=== PATIENT | female | born 1985 | race Caucasian/White ===

== ENCOUNTER 2019-12-05 10:49 | Outpatient (CLI) | payer OTHER, SELFPAY ==
[2019-12-05 11:13] LABS: D Dimer <= 0.27 ug/mIFEU (0-0.59)
== END 2019-12-05 10:50 | disposition home or self-care (01) ==
PROVIDERS: Family Provider Family Medicine; Visit Provider Family Medicine
DX: R07.89 Other chest pain (principal)
CPT/HCPCS: 85378

== ENCOUNTER 2019-12-05 11:44 | Emergency (ER) | payer OTHER, SELFPAY ==
[2019-12-05 11:55] VITALS: BP 120/87; PULSE 91; RESP 18; TEMP 37; O2SAT 98; BMI 22.6
--- NOTE | 2019-12-05 12:18 | XRR_ITS ---
PROCEDURE INFORMATION: Exam: XR Chest, 1 View Exam date and time: 12/05/2019 12:35 PM Age: 34 years old Clinical indication: Other: Syncope; Chest pain; Type not specified TECHNIQUE: Imaging protocol: XR of the chest Views: 1 view. COMPARISON: No relevant prior studies available. FINDINGS: Lungs: Unremarkable. No consolidation. Pleural space: Unremarkable. No pleural effusion. No pneumothorax. Heart/Mediastinum: Unremarkable. No cardiomegaly. Bones/joints: Unremarkable. XR/XR chest 1V portable [id number] IMPRESSION: No acute findings.
--- NOTE | 2019-12-05 12:18 | ECG_ITS ---
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 Measurements Intervals [place] Rate: 85 P: 60 [place]: 165 QRS: 58 QRSD: 77 T: 11 QT: 343 QTc: 410 Interpretive Statements SINUS RHYTHM SEPTAL MYOCARDIAL INFARCTION , PROBABLY OLD [40+ ms Q WAVE IN V1/V2] No previous ECG available for comparison Electronically Signed On 12-05-2019 16:26:21 CDT by Nicolasa Griffith M.D. [id number] salazar
[2019-12-05 12:21] VITALS: BP 124/87; PULSE 98; RESP 26; O2SAT 100
[2019-12-05 12:46] LABS: Basophils # 0.1 10^3/uL (0.0-0.1); Basophils % 0.5 %; Eosinophils # 0.3 10^3/uL (0.0-0.8); Eosinophils % 2.5 %; Hematocrit 42.1 % (37.0-47.0); Hemoglobin 13.5 g/dL (11.5-15.3); Lymphocytes # 2.1 10^3/uL (0.8-4.8); Mean Corpuscular HGB Conc 32.1 g/dL (30.0-36.0); Mean Corpuscular Hemoglobin 29.3 pg (28.0-34.0); Mean Corpuscular Volume 91.5 fL (81-99); Mean Platelet Volume 10.5 fL (7.4-10.4); Monocytes # 0.6 10^3/uL (0.2-0.9); Monocytes % 6.2 %; Neutrophils # 6.88 10^3/uL (1.8-7.7); Neutrophils % 69.6 %; Nucleated Red Blood Cells % 0 %; Platelet Count 302 10^3/cmm (130-400); Red Cell Distribution Width 12.8 % (12.1-15.1); White Blood Count 9.9 10^3/uL (4.0-10.0)
[2019-12-05 12:56] VITALS: BP 124/87; O2SAT 98
[2019-12-05 13:03] LABS: Lactate (Lactic Acid level) 0.8 mmol/L (0.5-2.2)
[2019-12-05 13:05] LABS: D Dimer <= 0.27 ug/mIFEU (0-0.59)
[2019-12-05 13:06] LABS: Troponin(5th) Baseline 6 ng/L (0-10)
[2019-12-05 13:08] LABS: Alanine Aminotransferase 14 U/L (0-33); Albumin Level 4.6 g/dL (3.5-5.2); Alkaline Phosphatase 53 IU/L (35-105); Anion Gap 15.7 (5-19); Aspartate Amino Transferase 20 U/L (0-32); Blood Urea Nitrogen 10 mg/dL (6-20); Calcium 9.3 mg/dL (8.5-10.5); Carbon Dioxide 26 mmol/L (22-29); Chloride 101 mmol/L (98-107); Globulin 2.8 g/dL (1.3-4.6); Glomerular Filtration Rate 113.1 mL/min (90-130); Glucose 103 mg/dL (65-115); Osmolality Calculated 287 mOsm/kg (285-295); Potassium 3.7 mmol/L (3.5-5.1); Sodium 139 mmol/L (136-145); Total Bilirubin 0.2 mg/dL (0.15-1.2); Total Protein 7.4 g/dL (6.6-8.7)
--- NOTE | 2019-12-05 13:08 | ED_ITS ---
HPI - Chest Pain General: Chief Complaint: Chest Pain Stated Complaint: Chest Pain/High Heart Rate/Loss of smell & taste Time Seen by Provider: 12/05/19 12:08 History of Present Illness: HPI narrative: 34-year-old female patient presents to the emergency department from her primary care's office for work-up. Tested positive for Covid on 11/10/2019. Reports return to work on 11/20/2019. Experienced an episode of tachycardia on 11/24/2019. Reports did not last but a few seconds. States continues to experience chest pain, cough and occasional heart fluttering. She was seen today for follow-up and urged to come to the ER due to concern of myocarditis. She reports is here for a CAT scan of her chest. She reports her primary care provider has ordered a Holter monitor. MD complaint: chest pain Onset (ago): day(s) (11) Timing of current episode: episodic Prior episodes: No Onset: during exertion Pain location: epigastric Pain radiation: none Severity: mild Quality: tightness and heaviness Relieving factors: rest Exacerbating factors: exertion and other (Cough) Context: recent illness (COVID-19) Associated symptoms: Reports palpitations and other (Cough, worse in the afternoon); Deny abdominal pain, diaphoresis, dyspnea, fever(s), nausea, syncope or vomiting Treatment prior to arrival: none Review of Systems General: Reports: 10 or more systems reviewed and unremarkable except in HPI and below Const: Denies: fever(s), chills or diaphoresis Eyes: Denies: blurry vision or eye redness ENMT: Denies: throat pain, dental pain or disequilibrium Card: Reports: chest pain and palpitations; Denies: irregular heart rhythm, edema, swelling of feet/ankles, syncope, dyspnea on exertion or orthopnea Resp: Reports: non-productive cough; Denies: dyspnea, productive cough, wheezing, pain on inspiration or chest congestion GI: Denies: abdominal pain, nausea or vomiting : Denies: difficulty voiding or dysuria Musc: Denies: back pain Skin/Breast: Denies: rash or pruritus Neuro: Denies: headache(s), weakness in extremities or behavioral changes Psych: Denies: anxiety or depression Warren/Lymph: Denies: easy bruising Physical Exam Const: COMMON NORMALS: no acute distress, patient oriented x3, healthy appearing and alert GENERAL APPEARANCE: cooperative, comfortable and well hydrated HENMT: COMMON NORMALS: normocephalic, Normal external nose present and moist oral mucous membranes HEAD & SCALP: normocephalic NOSE: Normal external nose present Eye: COMMON NORMALS: Equal, round and reactive pupils present and EOMs intact bilaterally GENERAL EYE: appearance normal, both eyes and all related structures PUPIL: Yes Equal, round and reactive pupils present Neck/C-Spine: COMMON NORMALS: full ROM and no lymphadenopathy GENERAL: Yes normal visual inspection and Yes trachea midline CERVICAL SPINE: Yes cervical ROM normal Lymph: LYMPHATIC: no lymphadenopathy noted Chest: COMMONS NORMALS: normal inspection of the chest Resp: COMMON NORMALS: normal respiratory effort and clear to auscultation bilaterally AUSCULTATION: clear to auscultation bilaterally Cardio: COMMON NORMALS: regular rhythm, S1 normal heart sound present, S2 normal heart sound present and Peripheral pulses 2+ throughout RHYTHM: regular rhythm HEART SOUNDS: S1 normal heart sound present and S2 normal heart sound present PERIPHERAL PULSES: Peripheral pulses 2+ throughout GI: COMMON NORMALS: Soft to palpation and non-tender INSPECTION: Yes normal to inspection PALPATION: Yes Soft to palpation : COMMON NORMALS: Yes no CVA tenderness BLADDER/KIDNEY EXAM: Yes no CVA tenderness Back/Pelvis: COMMON NORMALS: no CVA tenderness and thoracic and lumbar spine normal to inspection Extremity: COMMON NORMALS: normal to inspection and capillary refill normal Neuro: COMMON NORMALS: patient oriented x3 and no focal motor deficits SENSORIUM/ORIENTATION: Yes alert Psych: COMMON NORMALS: mental status grossly normal, Normal thought process present and cooperative ACTIVITY/MOTOR BEHAVIOR: Yes appropriate eye contact THOUGHT PROCESS: Normal thought process present Skin: COMMON NORMALS: no rashes or lesions noted and turgor normal GENERAL SKIN EXAM: no rashes or lesions noted and turgor normal Course ED course: 34-year-old female patient presents to the emergency department due to tachycardic episode, continued palpitations and concern for myocarditis. D- dimer found to be less than 0.27, troponin 6 which is normal, lactate normal, chest x-ray normal without acute disease, case discussed with Dr. Remy, due to negative D-dimer elevation, CT of the chest not indicated, discussed with patient echocardiogram, she wishes to proceed while she is here, TSH added. 34-year-old female patient presents to the emergency department due to concern of cardiac abnormality following COVID-19 infection. Troponin negative for elevation, white blood count normal, chemistry unremarkable, lactate normal, TSH normal, EKGs were normal, D-dimer less than 0.27, CT of the chest not indicated, she was not tachycardic and O2 saturation 99% on room air. Wells criteria for PE 0. Echocardiogram read by Dr. Martinez with no acute findings. She is recommended to follow-up with her primary care provider and continue with Holter monitor recommendation. She denied chest pain or episodes of palpitations here in the ED. She reports symptoms occur with exertion/activity. She agrees to return to the emergency department if she develops concerning symptoms such as chest pain, continued episodes of palpitations or other concerning symptoms. Consultations: Consultation #1: Dr Martinez -called with results of echocardiogram, no acute findings, normal echocardiogram. Time: 17:02 Vital Signs: Vital signs: Vital Signs Temperature 98.6 F 12/05/19 11:55 Pulse Rate 82 12/05/19 17:33 Respiratory Rate 12 12/05/19 17:33 Blood Pressure 113/76 12/05/19 17:33 Pulse Oximetry 99 12/05/19 17:33 MDM - Chest Pain Lab Data: Labs: Lab Results 12/05/19 12/05/19 12/05/19 Range/Units 12:24 12:25 12:25 WBC 9.9 (4.0-10.0) 10^3/ uL RBC 4.60 (4.1-5.3) 10^6/u L Hgb 13.5 (11.5-15.3) g/dL Hct 42.1 (37.0-47.0) % MCV 91.5 (81-99) fL MCH 29.3 (28.0-34.0) pg MCHC 32.1 (30.0-36.0) g/dL RDW 12.8 (12.1-15.1) % Plt Count 302 (130-400) 10^3/c mm MPV 10.5 H (7.4-10.4) fL Neut % (Auto) 69.6 % Lymph % (Auto) 21.0 % [place] % (Auto) 6.2 % Eos % (Auto) 2.5 % Baso % (Auto) 0.5 % Neut # (Auto) 6.88 (1.8-7.7) 10^3/u L Lymph # (Auto) 2.1 (0.8-4.8) 10^3/u L [place] # (Auto) 0.6 (0.2-0.9) 10^3/u L Eos # (Auto) 0.3 (0.0-0.8) 10^3/u L Baso # (Auto) 0.1 (0.0-0.1) 10^3/u L Nucleated RBC % (a uto) 0 % Nucleated RBCs # 0.0 /100WBC D-Dimer <= 0.27 (0-0.59) ug/mIFE U Sodium (136-145) mmol/L Potassium (3.5-5.1) mmol/L Chloride (98-107) mmol/L Carbon Dioxide (22-29) mmol/L Anion Gap (5-19) BUN (6-20) mg/dL Creatinine (0.5-0.9) mg/dL GFR Calculation (90-130) mL/min Glucose (65-115) mg/dL Calculated Osmolal ity (285-295) mOsm/k g Lactate (0.5-2.2) mmol/L Calcium (8.5-10.5) mg/dL Total Bilirubin (0.15-1.2) mg/dL AST (0-32) U/L ALT (0-33) U/L Alkaline Phosphata se (35-105) IU/L Troponin T Baselin e (0-10) ng/L Troponin T 120 Min [place] (0-10) ng/L Delta Troponin T (0-10) ABS# Total Protein (6.6-8.7) g/dL Albumin (3.5-5.2) g/dL Globulin (1.3-4.6) g/dL TSH 2.19 (0.27-4.20) uIU/ mL 12/05/19 12/05/19 12/05/19 Range/Units 12:25 12:25 12:25 WBC (4.0-10.0) 10^3/ uL RBC (4.1-5.3) 10^6/u L Hgb (11.5-15.3) g/dL Hct (37.0-47.0) % MCV (81-99) fL MCH (28.0-34.0) pg MCHC (30.0-36.0) g/dL RDW (12.1-15.1) % Plt Count (130-400) 10^3/c mm MPV (7.4-10.4) fL Neut % (Auto) % Lymph % (Auto) % [place] % (Auto) % Eos % (Auto) % Baso % (Auto) % Neut # (Auto) (1.8-7.7) 10^3/u L Lymph # (Auto) (0.8-4.8) 10^3/u L [place] # (Auto) (0.2-0.9) 10^3/u L Eos # (Auto) (0.0-0.8) 10^3/u L Baso # (Auto) (0.0-0.1) 10^3/u L Nucleated RBC % (a uto) % Nucleated RBCs # /100WBC D-Dimer (0-0.59) ug/mIFE U Sodium 139 (136-145) mmol/L Potassium 3.7 (3.5-5.1) mmol/L Chloride 101 (98-107) mmol/L Carbon Dioxide 26 (22-29) mmol/L Anion Gap 15.7 (5-19) BUN 10 (6-20) mg/dL Creatinine 0.6 (0.5-0.9) mg/dL GFR Calculation 113.1 (90-130) mL/min Glucose 103 (65-115) mg/dL Calculated Osmolal ity 287 (285-295) mOsm/k g Lactate 0.8 (0.5-2.2) mmol/L Calcium 9.3 (8.5-10.5) mg/dL Total Bilirubin 0.2 (0.15-1.2) mg/dL AST 20 (0-32) U/L ALT 14 (0-33) U/L Alkaline Phosphata se 53 (35-105) IU/L Troponin T Baselin e 6 (0-10) ng/L Troponin T 120 Min [place] (0-10) ng/L Delta Troponin T (0-10) ABS# Total Protein 7.4 (6.6-8.7) g/dL Albumin 4.6 (3.5-5.2) g/dL Globulin 2.8 (1.3-4.6) g/dL TSH (0.27-4.20) uIU/ mL 12/05/19 Range/Units 14:30 WBC (4.0-10.0) 10^3/ uL RBC (4.1-5.3) 10^6/u L Hgb (11.5-15.3) g/dL Hct (37.0-47.0) % MCV (81-99) fL MCH (28.0-34.0) pg MCHC (30.0-36.0) g/dL RDW (12.1-15.1) % Plt Count (130-400) 10^3/c mm MPV (7.4-10.4) fL Neut % (Auto) % Lymph % (Auto) % [place] % (Auto) % Eos % (Auto) % Baso % (Auto) % Neut # (Auto) (1.8-7.7) 10^3/u L Lymph # (Auto) (0.8-4.8) 10^3/u L [place] # (Auto) (0.2-0.9) 10^3/u L Eos # (Auto) (0.0-0.8) 10^3/u L Baso # (Auto) (0.0-0.1) 10^3/u L Nucleated RBC % (a uto) % Nucleated RBCs # /100WBC D-Dimer (0-0.59) ug/mIFE U Sodium (136-145) mmol/L Potassium (3.5-5.1) mmol/L Chloride (98-107) mmol/L Carbon Dioxide (22-29) mmol/L Anion Gap (5-19) BUN (6-20) mg/dL Creatinine (0.5-0.9) mg/dL GFR Calculation (90-130) mL/min Glucose (65-115) mg/dL Calculated Osmolal ity (285-295) mOsm/k g Lactate (0.5-2.2) mmol/L Calcium (8.5-10.5) mg/dL Total Bilirubin (0.15-1.2) mg/dL AST (0-32) U/L ALT (0-33) U/L Alkaline Phosphata se (35-105) IU/L Troponin T Baselin e (0-10) ng/L Troponin T 120 Min [place] 6.00 (0-10) ng/L Delta Troponin T 0 (0-10) ABS# Total Protein (6.6-8.7) g/dL Albumin (3.5-5.2) g/dL Globulin (1.3-4.6) g/dL TSH (0.27-4.20) uIU/ mL Imaging Data^: CXR: Radiologist's impression: [address] [place] [address] XRay Report Signed Patient: Karoline Ngo Unit #: [id number] : 1985 Age/Sex: 34 / F ADM Date: 12/05/19 Loc: ER Room/Bed: Attending Dr: Ordering Provider/Ordering MD: Christa Noguera Date of Service: 12/05/19 Procedure(s): XR chest 1V portable [id number] Accession Number(s): [id number] Report Number: [id number] PROCEDURE INFORMATION: Exam: XR Chest, 1 View Exam date and time: 12/05/2019 12:35 PM Age: 34 years old Clinical indication: Other: Syncope; Chest pain; Type not specified TECHNIQUE: Imaging protocol: XR of the chest Views: 1 view. COMPARISON: No relevant prior studies available. FINDINGS: Lungs: Unremarkable. No consolidation. Pleural space: Unremarkable. No pleural effusion. No pneumothorax. Heart/Mediastinum: Unremarkable. No cardiomegaly. Bones/joints: Unremarkable. XR/XR chest 1V portable [id number] IMPRESSION: No acute findings. Dictated By: Everardo White Signed By: Everardo White Signed Date/Time: 11/16 1301 DD/ 1300 EKG Data^: EKG 1: EKG interpretation date: 12/05/19 EKG interpretation time: 12:14 Computer generated interpretation: Sinus rhythm, septal myocardial infarction, probably old, abnormal ECG, unconfirmed report EKG 2: EKG interpretation date: 12/05/19 EKG interpretation time: 15:15 Prior EKG tracings: available for review Other EKG comments: Sinus rhythm, septal myocardial infarction, probably old, abnormal ECG Discharge Plan Discharge Patient Disposition: Home Clinical Impression: COVID-19, Heart palpitations Chest pain Qualifiers: Chest pain type: unspecified Qualified Code(s): R07.9 - Chest pain, unspecified Condition: Stable Discharge Orders: Discharge Order (Routine); Ordered 12/05/19 Ordered By: Christa Noguera Discharge Diet: Usual diet Discharge Activity: Resume usual activity Patient Instructions: Chest Pain (ED), Palpitations (ED) Activity Restrictions/Additional Instructions: Continue with heart monitor recommendation by your primary care provider Follow-up with your primary care provider in 3 to 4 day Return to the emergency department if you develop chest pain, shortness of breath, inability to catch your breath, or other concerning symptoms Take it easy, rest frequently, activity as tolerated Stand Alone Forms: Work/School Release Discharge Date/Time: 12/05/19 17:58 Coding Level of Care Code ED 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
--- NOTE | 2019-12-05 13:27 | USCV_ITS ---
Karoline Ngo Age: 34 Gender: F : 1985 Exam Date: 12/05/2019 13:55 Ordering Phys: Christa Noguera Technologist: Ghanshyam Alfaro Exam Location: [facility] [place] Indication: CHEST PAIN/ TACHYCARDIA BP: 117 / HR: 148 Rhythm: Sinus Technical Quality: Adequate MEASUREMENTS (Male / Female) Normal Values 2D ECHO LV Diastolic Diameter PLAX 4.4 cm 4.2 - 5.9 / 3.9 - 5.3 cm LV Systolic Diameter PLAX 3.1 cm IVS Diastolic Thickness 1.1 cm 0.6 - 1.0 / 0.6 - 0.9 cm IVS Systolic Thickness 1.2 cm LVPW Diastolic Thickness 1.2 cm 0.6 - 1.0 / 0.6 - 0.9 cm LVPW Systolic Thickness 1.2 cm LVOT Diameter 2.0 cm LV Ejection Fraction 2D Teich 47.5 % LV Ejection Fraction MOD 2C 73.1 % LV Ejection Fraction 2C AL 73.4 % LA Diameter 3.4 cm LA Width 3.0 cm LA Height 3.5 cm RA Width 2.7 cm RA Height 3.7 cm M-MODE LV Diastolic Diameter MM 4.6 cm 4.2 - 5.9 / 3.9 - 5.3 cm LV Systolic Diameter MM 3.2 cm LV Ejection Fraction MM Teich 58.3 % IVS Diastolic Thickness MM 0.9 cm 0.6 - 1.0 / 0.6 - 0.9 cm IVS Systolic Thickness MM 1.1 cm LVPW Diastolic Thickness MM 1.3 cm 0.6 - 1.0 / 0.6 - 0.9 cm LVPW Systolic Thickness MM 1.6 cm RV Diastolic Diameter MM 1.3 cm Aortic Annulus Diameter 3.2 cm LA Ao Ratio MM 1.1 MV E Point Septal Separation 1.1 cm DOPPLER AV Peak Velocity 98.0 cm/s LVOT Peak Velocity 91.0 cm/s AV Area Cont Eq vti 3.3 cm squared AV Area Cont Eq pk 3.0 cm squared MV Area PHT 5.0 cm squared Mitral E to A Ratio 1.2 MV E' Velocity 43.5 cm/s Mitral E to MV E' Ratio 4.5 Mitral E to LV E' Lateral Ratio 3.6 Mitral E to LV E' Septal Ratio 6.1 TR Peak Velocity 134.3 cm/s TR Peak Gradient 7.2 mmHg TV Peak E Velocity 91.0 cm/s Right Atrial Pressure 3.0 mmHg Pulmonary Artery Systolic Pressu 10.2 mmHg PV Peak Velocity 101.0 cm/s FINDINGS Left Ventricle Normal left ventricular size and systolic function, EF 73 %. No regional wall motion abnormalities. Right Ventricle Normal right ventricular size and systolic function. Right Atrium Normal right atrial size. Left Atrium Normal left atrial size. Mitral Valve Thickened mitral valve. Trace mitral valve regurgitation. Aortic Valve No gross abnormalities noted Tricuspid Valve No gross abnormalities noted Pulmonic Valve Pulmonic valve not well visualized. Pericardium No pericardial effusion. Aorta Normal aortic annulus size. CONCLUSIONS Normal left ventricular size and systolic function, EF 73 %. No regional wall motion abnormalities. Thickened mitral valve. Trace mitral valve regurgitation. No significant stenotic or regurgitant lesions. Normal cardiac chamber sizes. No intracardiac masses. There is no pericardial effusion. No previous study is available for comparison. Dr Rex Martinez MD FACC (Electronically Signed) Final Date: 05 December 2019 17:08 S
[2019-12-05 13:46] VITALS: BP 113/79; PULSE 86; RESP 14; O2SAT 97
--- NOTE | 2019-12-05 14:18 | ECG_ITS ---
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 Measurements Intervals [place] Rate: 84 P: 54 [place]: 172 QRS: 64 QRSD: 80 T: 39 QT: 374 QTc: 443 Interpretive Statements SINUS RHYTHM SEPTAL MYOCARDIAL INFARCTION , PROBABLY OLD [40+ ms Q WAVE IN V1/V2] Compared to ECG 12/05/2019 12:11:07 No significant changes Electronically Signed On 12-05-2019 16:32:52 CDT by Nicolasa Griffith M.D. [id number]
[2019-12-05 14:29] LABS: Thyroid Stimulating Hormone 2.19 uIU/mL (0.27-4.20)
[2019-12-05 15:47] LABS: Troponin 5 2HR Delta 0 ABS# (0-10)
[2019-12-05 16:53] VITALS: BP 115/84; PULSE 96; RESP 21; O2SAT 97
[2019-12-05 17:33] VITALS: BP 113/76; PULSE 82; RESP 12; O2SAT 99
== END 2019-12-05 17:58 | disposition home or self-care (01) ==
PROVIDERS: Emergency Provider Nurse Practitioner Family
DX: U07.1 COVID-19 (principal); R00.2 Palpitations; R07.9 Chest pain, unspecified
CPT/HCPCS: 12345; 71045; 80053; 83605; 84443; 84484; 85025; 85378; 93005; 93306; 99282; 99283

== ENCOUNTER 2019-12-25 11:49 | Outpatient (CLI) | payer OTHER, SELFPAY ==
[2019-12-25 12:20] LABS: Basophils # 0.1 10^3/uL (0.0-0.1); Basophils % 0.6 %; Eosinophils # 0.2 10^3/uL (0.0-0.8); Eosinophils % 1.4 %; Hematocrit 38.8 % (37.0-47.0); Hemoglobin 12.4 g/dL (11.5-15.3); Lymphocytes % 42.1 %; Mean Corpuscular Hemoglobin 29.6 pg (28.0-34.0); Mean Corpuscular Volume 92.6 fL (81-99); Mean Platelet Volume 9.6 fL (7.4-10.4); Monocytes # 0.8 10^3/uL (0.2-0.9); Monocytes % 6.6 %; Neutrophils # 5.82 10^3/uL (1.8-7.7); Neutrophils % 48.9 %; Nucleated Red Blood Cells % 0 %; Platelet Count 296 10^3/cmm (130-400); Red Blood Count 4.19 10^6/uL (4.1-5.3); Red Cell Distribution Width 12.5 % (12.1-15.1); White Blood Count 11.9 10^3/uL (4.0-10.0)
[2019-12-25 12:47] LABS: Anion Gap 11.1 (5-19); Blood Urea Nitrogen 12 mg/dL (6-20); Calcium 9.2 mg/dL (8.5-10.5); Carbon Dioxide 30 mmol/L (22-29); Chloride 100 mmol/L (98-107); Glomerular Filtration Rate 81.2 mL/min (90-130); Glucose 96 mg/dL (65-115); Osmolality Calculated 286 mOsm/kg (285-295); Potassium 3.1 mmol/L (3.5-5.1); Sodium 138 mmol/L (136-145)
[2019-12-26 16:27] LABS: Immunoglobulin E 100 kU/L (<OR=114)
[2019-12-26 17:24] LABS: Alternaria Alternata (M6) Ige <0.10 kU/L; Alternaria Class 0; Cat Dander (E1) Ige <0.10 kU/L; Cat Dander Class 0; Common Ragweed (Short) (W1) Ig <0.10 kU/L; D. Farinae Class 0; Dermatophagoides Class 0/1; Dermatophagoides Farinae (D2) <0.10 kU/L; Dermatophagoides Pteronyssinus 0.24 kU/L; Dog Dander (E5) Ige <0.10 kU/L; Dog Dander Class 0; Elm (T8) Ige <0.10 kU/L; Elm Class 0; English Plantain (W9) Ige <0.10 kU/L; English Plantain Class 0; House Dust (Greer) (H1) Ige <0.10 kU/L; House Dust (Hollister- Stier) <0.10 kU/L; House Dust Class 0; Immunoglobulin E 106 kU/L (<OR=114); Lamb'S Quarters (Goose Foot) <0.10 kU/L; Lamb'S Quarters Class 0; Maple (Box Elder) (T1) Ige <0.10 kU/L; Maple Class 0; Mucor Racemosus Class 0; Oak (T7) Ige <0.10 kU/L; Oak Class 0; Penicillium Class 0/1; Penicillium Notatum (M1) Ige 0.14 kU/L; Ragweeed Class 0; Rough Marsh Elder (W16) Ige <0.10 kU/L; Rough Marsh Elder Class 0
[2019-12-27 16:57] LABS: Bermuda Class 0; Bermuda Grass (G2) Ige <0.10 kU/L; Johnson Grass (G10) Ige <0.10 kU/L; Johnson Grass Cl 0; June Grass Class 0; June Grass(Kentucky Blue) (G8) <0.10 kU/L; Meadow Fescue (G4) Ige <0.10 kU/L; Meadow Fescue Class 0; Orchard Grass (Cocksfoot) (G3) <0.10 kU/L; Perennial Rye Grass (G5) Ige <0.10 kU/L; Perennial Rye Grass Class 0; Sweet Vernal Class 0/1; Sweet Vernal Grass (G1) Ige 0.19 kU/L; Timothy Grass (G6) Ige <0.10 kU/L; Timothy Grass Class 0
[2020-01-02 18:38] LABS: Aspergillus Fumigatus, Igg Ab, 13.7 mg/L (<=102)
== END 2019-12-25 11:50 | disposition home or self-care (01) ==
LOC: LAB 11:52
PROVIDERS: PCP Nurse Practitioner Family; Visit Provider Internal Medicine Pulmonary Disease
DX: R05 Cough (principal)
CPT/HCPCS: 36415; 80048; 82785; 85025; 86003

== ENCOUNTER 2020-01-08 09:54 | Outpatient (CLI) | payer OTHER, SELFPAY ==
--- NOTE | 2020-01-08 10:00 | CT_ITS ---
WS: [id number] CTA OF THE CHEST WITH PULMONARY EMBOLISM PROTOCOL TECHNIQUE: High-resolution contrast enhanced CTA of the chest with coronal and sagittal reformatted i mages with pulmonary embolism protocol. MIP images are also reviewed. CLINICAL INFORMATION: Pleuritic Chest Pain COMPARISON: None. DLP: 748.[address] scans at [facility] use at least one of these dose optimization techniques: automat ed exposure control; mA and/or kV adjustment per patient size (includes targeted exams where dose is matched to clinical indication); or iterative reconstruction. FINDINGS: Proximal main pulmonary arteries are normal. Segmental and subsegmental pulmonary arteries are patent . No evidence of pulmonary embolus. Normal caliber thoracic aorta. No mediastinal or hilar lymphadeno tristin. No axillary lymphadenopathy. Noncalcified hazy opacity in the right middle lobe along the fissure measuring 5 mm. No other suspici ous pulmonary parenchymal abnormalities. No focal pneumonia. No pleural fluid. Adrenal glands are normal. CT/CT angio chest PE protcl [id number] IMPRESSION: 1. No evidence for pulmonary embolus. 2. Normal caliber thoracic aorta. 3. No mediastinal or hilar lymphadenopathy. 4. No acute pulmonary infiltrates. No focal pneumonia or pleural fluid. 5. Noncalcified hazy opacity in the right middle lobe measuring 5 mm. Recommen d 6 month follow-up.
[2020-01-08] MEDS: iohexol 350 mg/mL 100 mL Btl IV (10:26)
== END 2020-01-08 09:55 | disposition home or self-care (01) ==
LOC: RADWPI 10:01
PROVIDERS: PCP Nurse Practitioner Family; Visit Provider Internal Medicine Pulmonary Disease
DX: R07.81 Pleurodynia (principal); R07.9 Chest pain, unspecified
CPT/HCPCS: 71275; Q9967

== ENCOUNTER → 2020-01-18 16:20 | Outpatient (BNVA) | payer OTHER, SELFPAY | PROVIDERS: PCP Nurse Practitioner Family; Visit Provider Internal Medicine Pulmonary Disease | DX: R06.02 Shortness of breath (principal) | CPT/HCPCS: 87635 ==

== ENCOUNTER 2020-01-24 13:46 | Outpatient (CLI) | payer OTHER, SELFPAY ==
--- NOTE | 2020-01-24 08:22 | PFTS_ITS ---
Date of Study:01/24/20 Date of Dictation: MECHANICS: Forced vital capacity (FVC) is normal. Forced expiratory volume in one second (FEV1) is normal. FEV1/FVC is normal. FLOW VOLUME LOOP: Normal. LUNG VOLUMES: Not measured DIFFUSING CAPACITY FOR CARBON MONOXIDE: Not measured. INTERPRETATION: The pre and postbronchodilator spirometry are normal. MTDD
--- NOTE | 2020-01-24 08:24 | MECH_ITS ---
Date of Study:01/24/20 Date of Dictation: Methacholine challenge test INTERPRETATION: The methacholine challenge test is positive. The PC 20 is 60 mg/mL MTDD
--- NOTE | 2020-01-24 14:00 | PFTS_ITS ---
Date of Study:01/24/20 Date of Dictation: MECHANICS: Forced vital capacity (FVC) is normal. Forced expiratory volume in one second (FEV1) is normal. FEV1/FVC is normal. FLOW VOLUME LOOP: Normal. LUNG VOLUMES: Not measured. DIFFUSING CAPACITY FOR CARBON MONOXIDE: Normal. INTERPRETATION: The pre and postbronchodilator spirometry are normal. The gas exchange is normal. MTDD
--- NOTE | 2020-01-24 14:00 | MECH_ITS ---
Date of Study:01/24/20 Date of Dictation: MECHANICS: Forced vital capacity (FVC) is . Forced expiratory volume in one second (FEV1) is . FEV1/FVC is . FLOW VOLUME LOOP: . LUNG VOLUMES: Total lung capacity (TLC) is . Residual volume (RV) is . DIFFUSING CAPACITY FOR CARBON MONOXIDE: . INTERPRETATION: The pulmonary function tests are . mechanics and lung volumes. Gas exchange (DLCO) is . MTDD
== END 2020-01-24 13:47 | disposition home or self-care (01) ==
LOC: RT 13:55
PROVIDERS: PCP Nurse Practitioner Family; Visit Provider Internal Medicine Pulmonary Disease
DX: R07.81 Pleurodynia (principal); J30.2 Other seasonal allergic rhinitis
CPT/HCPCS: 94060; 94070; 94726; 94729; J7611

== ENCOUNTER 2020-03-04 20:00 | Outpatient (CLI) | payer OTHER, SELFPAY | END 2020-03-04 20:01 | disposition home or self-care (01) | LOC: SLEEP 03-05 09:20 | PROVIDERS: PCP Nurse Practitioner Family; Visit Provider Internal Medicine Pulmonary Disease | DX: R09.02 Hypoxemia (principal) | CPT/HCPCS: 95810 ==

== ENCOUNTER 2020-05-10 08:07 | Outpatient (CLI) | payer OTHER, SELFPAY ==
--- NOTE | 2020-05-10 08:10 | MM_ITS ---
WS: [id number] BILATERAL DIGITAL SCREENING MAMMOGRAPHY WITH CAD CLINICAL INFORMATION: SCREENING HISTORY: Screening mammogram. Left breast soreness COMPARISON: None. TECHNIQUE: Bilateral CC and MLO views. FINDINGS: Scattered fibroglandular densities bilaterally. No suspicious focal mass, asymmetry, calcifications, or architectural distortion. No evidence of malignancy. MM/[place] [id number] IMPRESSION: BI-RADS: 1-Negative FOLLOW UP: 1 Year Follow-up Recommend return to annual screening mammography.
== END 2020-05-10 08:08 | disposition home or self-care (01) ==
LOC: RADSHAW 08:09
PROVIDERS: PCP Nurse Practitioner Family; Visit Provider Physician Assistant
DX: Z12.31 Encounter for screening mammogram for malignant neoplasm of breast (principal)
CPT/HCPCS: 77067

== ENCOUNTER 2021-05-05 19:00 | Emergency (ER) | payer OTHER, SELFPAY ==
[2021-05-05 19:13] VITALS: BP 117/86; PULSE 74; RESP 18; TEMP 36.8; O2SAT 99; BMI 22.6
[2021-05-05 19:48] LABS: Basophils # 0.1 10^3/uL (0.0-0.1); Basophils % 0.7 %; Eosinophils # 0.3 10^3/uL (0.0-0.8); Eosinophils % 2.5 %; Hematocrit 42.6 % (37.0-47.0); Hemoglobin 14.2 g/dL (11.5-15.3); Lymphocytes # 3.2 10^3/uL (0.8-4.8); Lymphocytes % 29.3 %; Mean Corpuscular HGB Conc 33.3 g/dL (30.0-36.0); Mean Corpuscular Hemoglobin 29.8 pg (28.0-34.0); Mean Corpuscular Volume 89.5 fl (81-99); Mean Platelet Volume 10.4 fL (7.4-10.4); Monocytes # 0.8 10^3/uL (0.2-0.9); Monocytes % 7.2 %; Nucleated Red Blood Cells % 0 %; Platelet Count 296 10^3/cmm (130-400); Red Blood Count 4.76 10^6/uL (4.1-5.3)
[2021-05-05 20:14] LABS: Alanine Aminotransferase 9 U/L (0-33); Albumin Level 4.7 g/dL (3.5-5.2); Alkaline Phosphatase 51 IU/L (35-105); Anion Gap 16.6 (5-19); Aspartate Amino Transferase 17 U/L (0-32); Blood Urea Nitrogen 11 mg/dL (6-20); Calcium 9.6 mg/dL (8.5-10.5); Carbon Dioxide 25 mmol/L (22-29); Chloride 100 mmol/L (98-107); Creatinine Clr Calc Pharmacy 123.5857; Globulin 3.2 g/dL (1.3-4.6); Glomerular Filtration Rate 112.5 mL/min (90-130); Glucose 89 mg/dL (65-115); Lipase 43 U/L (13-60); Osmolality Calculated 285 mOsm/kg (285-295); Potassium 3.6 mmol/L (3.5-5.1); Sodium 138 mmol/L (136-145); Total Bilirubin 0.3 mg/dL (0.15-1.2); Total Protein 7.9 g/dL (6.6-8.7)
--- NOTE | 2021-05-05 20:19 | CTR_ITS ---
PROCEDURE INFORMATION: Exam: CT Abdomen And Pelvis With Contrast Exam date and time: 05/05/2021 8:48 PM Age: 35 years old Clinical indication: Abdominal pain; Prior surgery; Surgery date: 6+ months; Surgery type: Tubal, hernia repair; Patient HX: Llq pain and tenderness x2 days; Additional info: Llq abdominal pain and tenderness. TECHNIQUE: Imaging protocol: Computed tomography of the abdomen and pelvis with contrast. Radiation optimization: All CT scans at this facility use at least one of these dose optimization techniques: automated exposure control; mA and/or kV adjustment per patient size (includes targeted exams where dose is matched to clinical indication); or iterative reconstruction. Contrast material: OMNI 300; Contrast volume: 95 ml; Contrast route: INTRAVENOUS (IV); COMPARISON: CT abdomen pelvis w con* [id number] 01/07/2016 7:46 PM RADIATION DOSE METRICS: Total DLP (mGy-cm): 966.11 FINDINGS: Lungs: Stable 3 mm left lower lobe perifissural nodule, most likely an intrapulmonary node. No follow-up is recommended. Liver: Normal. No mass. Gallbladder and bile ducts: Normal. No calcified stones. No ductal dilation. Pancreas: Normal. No ductal dilation. Spleen: Normal. No splenomegaly. Adrenal glands: Normal. No mass. Kidneys and ureters: Normal. No hydronephrosis. Stomach and bowel: Unremarkable. No obstruction. No mucosal thickening. Appendix: The appendix is visualized and is normal. Intraperitoneal space: Unremarkable. No free air. No significant fluid collection. Vasculature: Unremarkable. No abdominal aortic aneurysm. Lymph nodes: Unremarkable. No enlarged lymph nodes. Urinary bladder: Unremarkable as visualized. Reproductive: 3.2 cm right ovarian cyst, Hounsfield units 27. The uterus and left ovary are unremarkable. Bones/joints: Chronic left L5 pars fracture. No acute fracture. Soft tissues: Unremarkable. CT/CT abdomen pelvis w con* [id number] IMPRESSION: 1. No acute abnormality identified in the abdomen or pelvis. 2. 3.2 cm right ovarian cyst which is likely slightly complicated by hemorrhage. No further imaging is recommended. (Reference: Jerod) References: Jerod et al. Management of Incidental Adnexal Findings on CT and MRI: A White Paper of the ACR Incidental Findings Committee, J Am Franco Radiol. 2020 Mar;17(2):248-254.
--- NOTE | 2021-05-05 20:20 | ED_ITS ---
HPI - Abdominal Pain General: Chief Complaint: Abdominal Pain Stated Complaint: ABD Pain-sent from DR Connor Seen by Provider: 05/05/21 19:57 History of Present Illness: Patient is a 35-year-old female comes to the ED with abdominal pain. Symptoms started approximately 3 days ago. Abdominal pain is located in the left lower quadrant of the abdomen. Pain worsens after she eats or drinks something. The pain was more episodic the first 2 days, but today it has been more constant. Pain at its worst today was rated an 8 out of 10, but currently pain is 6 out of 10. She has had decreased appetite today with some nausea but no episodes of emesis. She has not taken anything for pain today. Denies any fever, chills, change in bowel movements, blood in stool, dysuria or hematuria. Associated Symptoms: Reports nausea; Denies chills, constipation, diarrhea, dysuria, fever(s), hematochezia, hematuria and vomiting Review of Systems Const: Reports: change in appetite (decreased); Denies: fever(s), chills or fatigue Eyes: Denies: change in vision or eye discomfort ENMT: Denies: throat pain, odynophagia, nasal discharge or nasal congestion Card: Denies: chest pain, palpitations, edema, swelling of feet/ankles, dyspnea on exertion or orthopnea Resp: Denies: dyspnea, productive cough or non-productive cough GI: Reports: abdominal pain and nausea; Denies: vomiting, diarrhea, constipation or hematochezia : Denies: flank pain, dysuria or hematuria Musc: Denies: neck pain, back pain or extremity swelling Skin/Breast: Denies: rash or new lesions Neuro: Denies: headache(s), numbness in extremities or weakness in extremities PFS ED PFSH: Medical History Tachycardia Surgical History H/O tubal ligation Family History Father Cancer colon Social History Smoking and tobacco status: never smoked Second hand smoke exposure: No Smoking risk assessment/counseling performed?: No Alcohol intake: current Alcohol intake frequency: holidays/special occasions only Desire information about alcohol rehabilitation?: No Counseling given: No Lives independently: Yes Household members: spouse Housing: House Marital status: Current occupational status: employed Pets and animals: Yes History of recent travel: No Current gender identity: Female Physical Exam Const: COMMON NORMALS: no acute distress, patient oriented x3, healthy appe aring and alert GENERAL APPEARANCE: cooperative and comfortable HENMT: COMMON NORMALS: normocephalic HEAD & SCALP: normocephalic MOUTH: Normal oral and palatal mucosa present THROAT: posterior oropharynx normal and uvula midline Neck/C-Spine: COMMON NORMALS: supple GENERAL: Yes normal visual inspection Resp: COMMON NORMALS: normal respiratory effort, No retractions, No use of accessory muscles and clear to auscultation bilaterally AUSCULTATION: clear to auscultation bilaterally Cardio: COMMON NORMALS: regular rate, regular rhythm, S1 normal heart sound present, S2 normal heart sound present, No gallops present (Cardio), No clicks present (Cardio), No murmurs present (Cardio) and Peripheral pulses 2+ throughout RATE: regular rate RHYTHM: regular rhythm HEART SOUNDS: S1 normal heart sound present and S2 normal heart sound present PERIPHERAL PULSES: Peripheral pulses 2+ throughout GI: COMMON NORMALS: Normal to inspection, nondistended, normoactive bowel sounds present, Soft to palpation and no masses PALPATION: Yes Soft to palpation and Yes Tenderness to palpation present (GI) Details: LLQ and RLQ : COMMON NORMALS: Yes no CVA tenderness BLADDER/KIDNEY EXAM: Yes no CVA tenderness Back/Pelvis: COMMON NORMALS: no CVA tenderness Extremity: COMMON NORMALS: normal to inspection Neuro: COMMON NORMALS: patient oriented x3 SENSORIUM/ORIENTATION: Yes alert GAIT: Yes Normal gait present Skin: GENERAL SKIN EXAM: dry skin Course Vital Signs: Vital signs: Vital Signs Temperature 98.2 F 05/05/21 19:13 Pulse Rate 67 05/05/21 22:18 Respiratory Rate 16 05/05/21 22:18 Blood Pressure 111/80 05/05/21 22:18 Pulse Oximetry 97 05/05/21 22:18 MDM - Abdominal Pain Medical Decision Making Patient is a 35-year-old female comes to the ED with abdominal pain. Pain is located in left lower quadrant and right lower quadrant. Denies any fever, emesis, change in bowel movements or any urinary symptoms. Vitals are stable. Patient appears healthy and in no acute distress. She has some left lower quadrant abdominal tenderness and right lower quadrant abdominal tenderness. Rest of exam was benign. All labs were unremarkable. hCG negative. CT of ab domen pelvis showed no acute abdomen or pelvic findings. There was a 3.2 cm right ovarian cyst seen but no further imaging was recommended. Patient diagnosed with right ovarian cyst and abdominal pain and was discharged home and told to follow-up with her primary care doctor in the next 5 to 7 days reevaluation. Return to ED precautions given. Patient understood and agreed with plan. Lab Data I reviewed the patient's lab results. : 05/05/21 19:40 05/05/21 19:40 Labs/Radiology: Radiology Impressions Abdomen/Pelvis CT 05/05/21 20:19 IMPRESSION: 1. No acute abnormality identified in the abdomen or pelvis. 2. 3.2 cm right ovarian cyst which is likely slightly complicated by hemorrhage. No further imaging is recommended. (Reference: Jerod) References: Jerod et al. Management of Incidental Adnexal Findings on CT and MRI: A White Paper of the ACR Incidental Findings Committee, J Am Franco Radiol. 2019;17(2):248-254. Laboratory Results WBC 11.0 10^3/uL (4.0-10.0) H 05/05/21 19:40 RBC 4.76 10^6/uL (4.1-5.3) 05/05/21 19:40 Hgb 14.2 g/dL (11.5-15.3) 05/05/21 19:40 Hct 42.6 % (37.0-47.0) 05/05/21 19:40 MCV 89.5 fl (81-99) 05/05/21 19:40 MCH 29.8 pg (28.0-34.0) 05/05/21 19:40 MCHC 33.3 g/dL (30.0-36.0) 05/05/21 19:40 RDW 12.0 % (12.1-15.1) L 05/05/21 19:40 Plt Count 296 10^3/cmm (130-400) 05/05/21 19:40 MPV 10.4 fL (7.4-10.4) 05/05/21 19:40 Neut % (Auto) 60.0 % 05/05/21 19:40 Lymph % (Auto) 29.3 % 05/05/21 19:40 [place] % (Auto) 7.2 % 05/05/21 19:40 Eos % (Auto) 2.5 % 05/05/21 19:40 Baso % (Auto) 0.7 % 05/05/21 19:40 Neut # (Auto) 6.60 10^3/uL (1.8-7.7) 05/05/21 19:40 Lymph # (Auto) 3.2 10^3/uL (0.8-4.8) 05/05/21 19:40 [place] # (Auto) 0.8 10^3/uL (0.2-0.9) 05/05/21 19:40 Eos # (Auto) 0.3 10^3/uL (0.0-0.8) 05/05/21 19:40 Baso # (Auto) 0.1 10^3/uL (0.0-0.1) 05/05/21 19:40 Nucleated RBC % (auto) 0 % 05/05/21 19:40 Nucleated RBCs # 0.0 /100WBC 05/05/21 19:40 Sodium 138 mmol/L (136-145) 05/05/21 19:40 Potassium 3.6 mmol/L (3.5-5.1) 05/05/21 19:40 Chloride 100 mmol/L (98-107) 05/05/21 19:40 Carbon Dioxide 25 mmol/L (22-29) 05/05/21 19:40 Anion Gap 16.6 (5-19) 05/05/21 19:40 BUN 11 mg/dL (6-20) 05/05/21 19:40 Creatinine 0.6 mg/dL (0.5-0.9) 05/05/21 19:40 GFR Calculation 112.5 mL/min (90-130) 05/05/21 19:40 Glucose 89 mg/dL (65-115) 05/05/21 19:40 Calculated Osmolality 285 mOsm/kg (285-295) 05/05/21 19:40 Calcium 9.6 mg/dL (8.5-10.5) 05/05/21 19:40 Total Bilirubin 0.3 mg/dL (0.15-1.2) 05/05/21 19:40 AST 17 U/L (0-32) 05/05/21 19:40 ALT 9 U/L (0-33) 05/05/21 19:40 Alkaline Phosphatase 51 IU/L (35-105) 05/05/21 19:40 Total Protein 7.9 g/dL (6.6-8.7) 05/05/21 19:40 Albumin 4.7 g/dL (3.5-5.2) 05/05/21 19:40 Globulin 3.2 g/dL (1.3-4.6) 05/05/21 19:40 Lipase 43 U/L (13-60) 05/05/21 19:40 HCG, Qual Negative (Negative) 05/05/21 20:19 Urine Color Straw (Yellow) 05/05/21 20:35 Urine Appearance Clear (CLEAR) 05/05/21 20:35 Urine pH 6 (5-7) 05/05/21 20:35 Ur Specific [place] 1.010 (1.005-1.030) 05/05/21 20:35 Urine Protein Neg (Negative) 05/05/21 20:35 Urine Glucose (UA) Norm (Normal) 05/05/21 20:35 Urine Ketones Negative (Negative) 05/05/21 20:35 Urine Blood Neg (Negative) 05/05/21 20:35 Urine Nitrate Negative (Negative) 05/05/21 20:35 Urine Bilirubin Neg (Negative) 05/05/21 20:35 Urine Urobilinogen Norm mg/dL (Negative) 05/05/21 20:35 Ur Leukocyte Esterase Negative (Negative) 05/05/21 20:35 Discharge Plan Discharge Patient Disposition: Home Clinical Impression: Right ovarian cyst Abdominal pain Qualifiers: Abdominal location: left lower quadrant Qualified Code(s): R10.32 - Left lower quadrant pain Condition: Stable Prescriptions: No Action multivitamin Tablet 1 tab PO DAILY 0RF cetirizine [Zyrtec] 10 mg tablet 10 mg PO DAILY PRN (Reason: allergy symptoms) 0RF albuterol sulfate [ProAir HFA] 90 mcg/actuation HFA aerosol inhaler 2 puff inhalation Q6H PRN0RF ivabradine 5 mg tablet 5 mg PO BID Qty: 60 3RF Rx Instructions: must administer with a meal/food montelukast [Singulair] 10 mg tablet 10 mg PO DAILY Qty: 30 3RF budesonide-formoterol [Symbicort] 80-4.5 mcg/actuation HFA aerosol inhaler 1 puff inhalation BID Qty: 10.2 3RF metoprolol tartrate 25 mg tablet 25 mg PO TID Qty: 120 5RF Rx Instructions: take 50mg in AM then take 25mg noon and PM Discharge Orders: Discharge ED (Routine); Ordered 05/05/21 Ordered By: Adam Morrow Referrals: Yuni Almaraz FNP [Primary Care Provider] - Discharge Diet: Advance as tolerated Discharge Activity: Increase activity as tolerated Patient Instructions: Abdominal Pain (ED), Opioid Safety Activity Restrictions/Additional Instructions: Follow-up with medical provider as directed in the next 5 days for reevaluation. Try taking [id number] MiraLAX for the next couple days to see if that helps with symptoms. Return to the ER or your medical provider if condition worsens. Please read and understand discharge instructions. Thank you for choosing [facility] for your healthcare needs today. Please realize this is an emergency room and that we are providing you with a medical screening exam and this may not be complete and all inclusive of all the testing and or work up that you may need to determine your ailment or severity of your illness. It is very important that you follow up as instructed or that you return to the Emergency Department should you have concerns or if your condition changes or worsens in any way. Coding Level of Care Code ED Bicycle Courier for Anna Palacios Exam Comprehensive
[2021-05-05] MEDS: ondansetron 2 mg/ML SDV 2 mL 4 MG IVP (20:32)
[2021-05-05 20:33] VITALS: RESP 16
[2021-05-05] MEDS: sodium chloride 0.9% 1,000 ML 999 ML IV (20:33)
[2021-05-05] MEDS: morphine 4 mg/mL SDV 1 mL 2 MG IVP (20:33)
[2021-05-05 20:36] VITALS: BP 112/79; PULSE 88; RESP 16; O2SAT 100
[2021-05-05 20:40] LABS: Add Urine Microscopic? NO; Charge for UA Resulting for Rev
[2021-05-05 20:43] LABS: Bilirubin Urine Neg (Negative); Blood Urine Neg (Negative); Glucose Urine UA Norm (Normal); Ketones Urine Negative (Negative); Leukocyte Esterase Urine Negative (Negative); Nitrate Urine Negative (Negative); Protein Urine Neg (Negative); Urine Appearance Clear (CLEAR); Urine Color Straw (Yellow); Urobilinogen Urine Norm (Negative); pH Urine 6 (5-7)
[2021-05-05] MEDS: iohexol 300 mg/mL 100 mL Btl IV (20:55)
[2021-05-05 20:57] LABS: HCG, Serum Qual Negative (Negative)
[2021-05-05 21:57] VITALS: BP 119/73; PULSE 75; RESP 16; O2SAT 99
[2021-05-05 22:18] VITALS: BP 111/80; PULSE 67; RESP 16; O2SAT 97
== END 2021-05-05 22:25 | disposition home or self-care (01) ==
PROVIDERS: Emergency Provider Physician Assistant; PCP Nurse Practitioner Family
DX: N83.201 Unspecified ovarian cyst, right side (principal)
CPT/HCPCS: 74177; 80053; 81003; 83690; 84703; 85025; 96361; 96374; 96375; 99284; J2270; J2405; J7030; Q9967

== ENCOUNTER 2021-09-30 07:24 | Outpatient (CLI) | payer OTHER, SELFPAY ==
[2021-09-30 07:52] LABS: Basophils % 0.7 %; Eosinophils # 0.2 10^3/uL (0.0-0.8); Eosinophils % 2.9 %; Hematocrit 39.5 % (37.0-47.0); Hemoglobin 12.9 g/dL (11.5-15.3); Lymphocytes # 1.9 10^3/uL (0.8-4.8); Mean Corpuscular HGB Conc 32.7 g/dL (30.0-36.0); Mean Corpuscular Hemoglobin 29.3 pg (28.0-34.0); Mean Corpuscular Volume 89.8 fl (81-99); Mean Platelet Volume 10.2 fL (7.4-10.4); Monocytes # 0.5 10^3/uL (0.2-0.9); Monocytes % 8.2 %; Neutrophils # 3.49 10^3/uL (1.8-7.7); Neutrophils % 56.9 %; Nucleated Red Blood Cells % 0 %; Platelet Count 264 10^3/cmm (130-400); Red Cell Distribution Width 12.4 % (12.1-15.1); White Blood Count 6.1 10^3/uL (4.0-10.0)
[2021-09-30 08:16] LABS: Alanine Aminotransferase 12 U/L (0-33); Albumin Level 4.2 g/dL (3.5-5.2); Alkaline Phosphatase 52 U/L (35-105); Amylase 60 U/L (28-100); Aspartate Amino Transferase 15 U/L (0-32); Blood Urea Nitrogen 8 mg/dL (6-20); Calcium 8.4 mg/dL (8.5-10.5); Carbon Dioxide 24 mmol/L (22-29); Chloride 106 mmol/L (98-107); Globulin 2.3 g/dL (1.3-4.6); Glomerular Filtration Rate 93.6 mL/min (90-130); Glucose 102 mg/dL (65-115); Lipase 55 U/L (13-60); Osmolality Calculated 287 mOsm/kg (285-295); Sodium 139 mmol/L (136-145); Total Bilirubin 0.5 mg/dL (0.15-1.2); Total Protein 6.5 g/dL (6.6-8.7)
[2021-09-30 08:45] LABS: Urine Color Yellow (Yellow)
[2021-09-30 08:46] LABS: Bilirubin Urine Neg (Negative); Blood Urine Neg (Negative); Glucose Urine UA Norm (Normal); Ketones Urine Negative (Negative); Leukocyte Esterase Urine Negative (Negative); Nitrate Urine Negative (Negative); Protein Urine Neg (Negative); RBC Urine RARE /hpf (0-2); Urine Appearance SL Hazy (CLEAR); Urobilinogen Urine Norm (Negative); WBC Urine 0-4 /hpf (0-5); pH Urine 5 (5-7)
[2021-09-30 08:47] LABS: Add Urine Culture? No; Bacteria Urine 1+ /hpf; Mucus Urine 1+ /hpf
== END 2021-09-30 07:25 | disposition home or self-care (01) ==
LOC: LAB 07:26
PROVIDERS: PCP Nurse Practitioner Family; Visit Provider Internal Medicine Gastroenterology
DX: R10.9 Unspecified abdominal pain (principal)
CPT/HCPCS: 36415; 80048; 80076; 81001; 82150; 83690; 85025; 86140